=== PATIENT | female | born 2000 | race Caucasian/White ===

== ENCOUNTER 2022-04-01 09:04 | Outpatient (REF) | payer OTHER, SELFPAY ==
[2022-04-01 11:23] LABS: MANUAL DIFF FLAG NO
[2022-04-01 11:44] LABS: Basophils Percent Auto 0.6 % (0-2); Eosinophils Absolute Auto 0.1 X10*3/uL (0.0-0.4); Eosinophils Percent Auto 2.4 % (0-4); Hematocrit 37.1 % (37.0-47.0); Imm Gran Abs Auto 0.02 X10*3/uL (0.00-0.03); Imm Gran Pct Auto 0.4 % (0.0-0.4); Lymphocytes Absolute Auto 1.5 X10*3/uL (1.2-4.9); Lymphocytes Percent Auto 30.4 % (20-40); Mean Corpuscular HGB Conc 32.3 g/dl (31.0-35.0); Mean Corpuscular Hemoglobin 26.8 pg (27.0-33.0); Mean Corpuscular Volume 82.8 fL (80.0-98.0); Mean Platelet Volume 10.2 fL (9.4-12.3); Monocytes Absolute Auto 0.5 X10*3/uL (0.1-1.2); Monocytes Percent Auto 10.3 % (2-11); Neutrophils Absolute Auto 2.8 x10*3/uL (2.0-8.3); Neutrophils Percent Auto 55.9 % (45-73); Platelet Count 337 X10*3/uL (160-400); Red Blood Count 4.48 X10*6/uL (4.20-5.50); Red Cell Distribution Width 12.9 % (11.0-16.0)
[2022-04-01 11:58] LABS: Alanine Aminotransferase 17 U/L (0-31); Albumin Level 4.4 g/dL (3.5-5.0); Alkaline Phosphatase 50 U/L (39-117); Anion Gap 15 (12-20); Aspartate Amino Transferase 10 U/L (5-31); Bilirubin Total 0.6 mg/dL (0.0-1.0); Blood Urea Nitrogen 10 mg/dL (9-16); Calcium 9.3 mg/dL (8.4-10.2); Carbon Dioxide 23 mmol/L (22-29); Chloride 105 mmol/L (96-108); Cholesterol 237 mg/dL; Estimated Glomerular Filt Rate > 60; Glucose Fasting 89 mg/dL (60-99); HDL Cholesterol 48 mg/dL; LDL Cholesterol Calculated 149 mg/dl; Potassium 4.2 mmol/L (3.3-5.1); Sodium 139 mmol/L (135-145); Total Protein 7.5 g/dL (6.5-8.0); Triglycerides 201 mg/dL
[2022-04-01 17:24] LABS: CT PCR NOT DETECTED (Not Detect.); NG PCR NOT DETECTED (Not Detect.)
== END 2022-04-01 09:05 | disposition home or self-care (01) ==
LOC: HO.HMGCLDS 09:04
PROVIDERS: PCP Internal Medicine; Visit Provider Internal Medicine
DX: Z00.00 Encounter for general adult medical examination without abnormal findings (principal); Z11.3 Encounter for screening for infections with a predominantly sexual mode of transmission
CPT/HCPCS: 80053; 80061; 84443; 85025; 87491; 87591

== ENCOUNTER 2022-05-09 11:06 | Outpatient (REF) | payer OTHER, SELFPAY ==
[2022-05-09 14:48] LABS: CT PCR NOT DETECTED (Not Detect.); NG PCR NOT DETECTED (Not Detect.)
[2022-05-10 12:16] LABS: BV Int Neg Control Negative (Negative); BV Int Pos Control Positive (Positive)
== END 2022-05-09 11:07 | disposition home or self-care (01) ==
LOC: HO.LNP 11:06
PROVIDERS: Visit Provider Advanced Practice Midwife
DX: Z01.419 Encounter for gynecological examination (general) (routine) without abnormal findings (principal); Z20.2 Contact with and (suspected) exposure to infections with a predominantly sexual mode of transmission; N92.6 Irregular menstruation, unspecified
CPT/HCPCS: 87480; 87491; 87510; 87591; 87660; 88142

== ENCOUNTER 2022-09-29 11:09 | Outpatient (REF) | payer OTHER, SELFPAY ==
--- NOTE | ~2022-09-29 | US_ITS ---
EXAM: Pelvic Ultrasound CLINICAL INDICATION: Irregular menstruation COMPARISON: None TECHNIQUE: The pelvis was evaluated using transabdominal and transvaginal imaging. FINDINGS: The uterus measures 7.1 x 3.6 x 3.9 cm in longitudinal by AP by transverse dimension. The endometrial stripe is not thickened and measures 0.7 cm. The cervix measures approximately 2.6 cm in length. Small nabothian cyst is noted. The left ovary measures approximately 3.0 x 2.4 x 1.7 cm and is normal. The right ovary measures approximately 4.6 x 3.0 x 2.8 cm and contains a simple appearing 2 cm simple cyst versus dominant follicle. There is a small amount of free fluid in the pelvis. US/US pelvic and transvaginal IMPRESSION: 1. Normal thickness endometrial stripe. 2. 2 cm simple appearing right ovarian cyst versus dominant follicle. 3. Small amount of free pelvic fluid, nonspecific but possibly physiologic.
== END 2022-09-29 11:10 | disposition home or self-care (01) ==
LOC: HO.US 11:09
PROVIDERS: Visit Provider Advanced Practice Midwife
DX: N92.6 Irregular menstruation, unspecified (principal)
CPT/HCPCS: 76830; 76856

== ENCOUNTER 2022-10-21 11:51 | Outpatient (REF) | payer OTHER, SELFPAY ==
[2022-10-21 14:31] LABS: Cholesterol 246 mg/dL; HDL Cholesterol 64 mg/dL; LDL Cholesterol Calculated 154 mg/dl; Triglycerides 144 mg/dL
[2022-10-21 14:42] LABS: Syphilis Screen Nonreactive (Nonreactive)
[2022-10-21 14:49] LABS: Thyroid Stimulating Hormone 2.69 uIU/mL (0.32-4.0)
[2022-10-22 22:55] LABS: DHEA Sulfate 418 mcg/dL (44-286)
[2022-10-24 08:42] LABS: HBc Num1 0.11 S/CO (0.00-0.79); HIV AB/AG Nonreactive (Nonreactive); HIV Num 1 0.06 S/CO (0.00-0.99); Hepatitis B Core Antibody Nonreactive (Nonreactive); ~Hepatitis C Antibody Nonreactive (Nonreactive)
[2022-10-27 14:33] LABS: Testosterone, Total 21 ng/dL (2-45)
== END 2022-10-21 11:52 | disposition home or self-care (01) ==
LOC: HO.LAB 11:51
PROVIDERS: PCP Internal Medicine; Visit Provider Advanced Practice Midwife
DX: N92.6 Irregular menstruation, unspecified (principal); N83.201 Unspecified ovarian cyst, right side; Z20.2 Contact with and (suspected) exposure to infections with a predominantly sexual mode of transmission; E78.5 Hyperlipidemia, unspecified
CPT/HCPCS: 36415; 80061; 82627; 83498; 84146; 84402; 84403; 84443; 86704; 86780; 86803; 87389

== ENCOUNTER → 2022-11-11 07:50 | Outpatient (BNVA) | payer OTHER, SELFPAY | PROVIDERS: PCP Internal Medicine; Visit Provider Advanced Practice Midwife | DX: Z13.89 Encounter for screening for other disorder (principal) ==

== ENCOUNTER 2023-03-28 09:42 | Outpatient (AMB) | payer OTHER, SELFPAY ==
--- NOTE | 2023-03-28 09:42 | MHC.OFFVIS ---
Intake Vital Signs 03/28/23 09:43 Height 5 ft 8 in Weight 218 lb 14.704 oz BMI 33.3 BP 118/64 Blood Pressure Location Lt brachial Position Sitting Pulse 84 Pulse Source Pulse Oximeter Intake Visit Reasons: PCOS/LVM Intake Note: New patient present today for PCOS. Medical Billing Coordinator Required: No Accompanied by: Self / Same As Patient Allergies amoxicillin Allergy (Verified 03/28/23 09:48) vomiting upset stomach Medication List - Last Reconciled 03/28/23 by Marty Hawkins MD fluoxetine (Prozac) 10 mg PO DAILY norethindrone ac-eth estradiol 1-20 mg-mcg (Loestrin) 1 tab PO DAILY HPI HPI Comments History of Present Illness Details 22 YO Female with who is seen in consultation at the request of her PCP for PCOS Menarche was age 12 . Menses have been irregular. nl on BCP OCP use: On Loestrin Metformin use: No Weight gain: No Hirsutism/hyperandrogenism: No Trying to conceive/clomiphene: No Ovarian U/S: US/ pelvic and transvaginal IMPRESSION: 1.? Normal thickness endometrial stripe. 2.? 2 cm simple appearing right ovarian cyst versus dominant follicle. 3.? Small amount of free pelvic fluid, nonspecific but possibly physiologic. 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 Thyroid gland is normal size weighs about 15 g. Lungs are clear to auscultation. Heart is S1-S2. Abdominal exam is benign. There is presence of hair growth present Assessment & Plan Assessment & Plan (1) Elevated dehydroepiandrosterone sulfate level: Code(s): R79.89 - Other specified abnormal findings of blood chemistry Plan: This is a 22-year-old female with a history of PCOS. An ovarian tumor an adrenal tumor have been ruled out biochemically. Mild elevation DHEA-S is consistent with polycystic ovarian syndrome. Plan is to continue with the control pill. Patient does not seek any treatment for the hirsutism and is not looking to become . At this point, she can follow up with primary care provider an OBGYN and returned back to endocrinology as needed Coding Level of Care Code New Pt Level 4 (60821) Diagnoses Elevated dehydroepiandrosterone sulfate level R79.89
[2023-03-28 09:43] VITALS: BP 118/64; PULSE 84; BMI 33.3
== END 2023-03-28 10:12 | disposition home or self-care (01) ==
PROVIDERS: PCP Internal Medicine; Visit Provider Internal Medicine Endocrinology, Diabetes & Metabolism
DX: R79.89 Other specified abnormal findings of blood chemistry (principal)
CPT/HCPCS: 99204

== ENCOUNTER → 2023-03-28 09:42 | Outpatient (BNVA) | payer OTHER, SELFPAY | PROVIDERS: PCP Internal Medicine; Visit Provider Internal Medicine Endocrinology, Diabetes & Metabolism ==

== ENCOUNTER 2023-07-19 10:12 | Outpatient (AMB) | payer OTHER, SELFPAY ==
--- NOTE | 2023-07-19 10:22 | A.OFFVIS_ITS ---
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 Doing well with no concerns. She tries to eat healthy and stays active with exercise. Regular monthly menses. Currently is sexually active. She denies vaginal itching and irritation. She denies any contraindications to control such as: migraines with aura, history of DVT or pulmonary emboli, high blood pressure, liver disease, thrombolic disorders, Lupus, +CARLEY, breast cancer, or smoking. STI screening offered; she accepts. Denies family history of breast, ovarian or colon cancer. Last pap smear 04/2022, negative. 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, works at [employer] Housing: House Alcohol intake: never Patient Tobacco Use Status: Never used Tobacco e-Cigarette/Vaping Use: Never Used Current occupational status: employed and student Sexual orientation: Straight/Heterosexual Gender identity: Female Cognitive needs: No Hearing needs: No Vision needs: Yes Female Reproductive History Menstrual Age of Menarche: 12 Duration of menses: 3-5 days Date of last menstrual period: 06/26/23 control method: pills Total pregnancies: 0 Date of last pap smear: 05/09/22 (neg) Review of Systems Const All systems reviewed & are unremarkable except as noted in HPI and below Reports as per HPI Eyes Reports no additional complaints ENT Reports no additional complaints Card Reports no additional complaints Resp Reports no additional complaints GI Reports as per HPI and Reports no additional complaints Reports as per HPI Musc Reports no additional complaints Skin/Breast Reports as per HPI Neuro Reports no additional complaints Psych Reports no additional complaints Endo Reports no additional complaints [place]/Lymph Reports no additional complaints Aller/Immun Reports no additional complaints Physical Exam Vital Signs: Last Vital Signs BP 120/76 07/19/23 10:24 BMI result Body Mass Index 33.4 Const General: cooperative, healthy appearing, no acute distress, well developed and alert Orientation/consciousness: patient oriented x3 HEENT Head: Yes normal to inspection Eyes General: appearance normal, both eyes and all related structures Neck Neck: Yes normal visual inspection Thyroid: Thyroid normal Chest Chest palpation & inspection: normal inspection of the chest and other (no puckering, dimpling, peau de orange, retraction, discharge, masses) Breast/axilla inspection: normal inspection of the breasts Breast/axilla palpation: normal palpation of the breasts Resp Effort & Inspection: normal respiratory effort GI Inspection: Yes normal to inspection Palpation (GI): Soft to palpation Rectal Exam - Female: deferred General: Yes bladder normal to palpation External Female Exam: normal external appearance and normal appearance of the urethra Speculum Exam - Vagina: normal appearance of the vagina, normal palpation and normal vaginal discharge Speculum Exam - Cervix: normal appearance of the cervix and normal palpation Bimanual exam- vagina & uterus: normal bimanual exam, normal palpation, uterine size normal, bladder normal to palpation, normal palpation and non-tender Bimanual Exam- Adnexa, other: no masses Skin General skin exam: no rashes or lesions noted Rashes: no rashes Neuro General: patient oriented x3 Cognition (Neuro): normal cognition Extrem General: Yes normal to inspection Psych Attitude: cooperative Thought process: Normal thought process present Assessment & Plan Assessment & Plan (1) Encounter for well woman exam with routine gynecological exam: Code(s): Z01.419 - Encounter for gynecological examination (general) (routine) without abnormal findings Plan Discussed: Current recommendations for pap smears per ASCCP guidelines. Breast awareness and periodic breast exams. Maintain a healthy lifestyle including a well balanced diet and routine exercise. Use condoms for STI and prevention. control hormone use warnings: go to ER if and loss of vision, blindness, severe headache, chest pain or difficulty breathing, severe abdominal pain, or any pain or swelling in an extremity. All of her questions and concerns were addressed to the best of my ability. RTO in one year for annual computer technician examination. This note is constructed using voice recognition software. While every effort has been made to ensure accuracy, transit planning manager errors may have been included. Orders: Orders CT NG by PCR Today Z20.2 - Contact with and (suspected) exposure to infections with a predominantly sexual mode of transmission Medications: Refilled norethindrone ac-eth estradiol 1-20 mg-mcg (Loestrin) 1 tab PO DAILY 63 tabs 4RF Coding Level of Care Code Est Pt Prev Care 18-39y(71418) Diagnoses Encounter for well woman exam with routine gynecological exam Z01.419
[2023-07-19 10:24] VITALS: BP 120/76; BMI 33.4
== END 2023-07-19 11:02 | disposition home or self-care (01) ==
LOC: HO.HWS 10:12
PROVIDERS: PCP Internal Medicine; Visit Provider Advanced Practice Midwife
DX: Z01.419 Encounter for gynecological examination (general) (routine) without abnormal findings (principal)
CPT/HCPCS: 99395

== ENCOUNTER 2023-07-19 10:12 | Outpatient (REF) | payer OTHER, SELFPAY ==
[2023-07-19 17:24] LABS: CT PCR NOT DETECTED (Not Detect.); NG PCR NOT DETECTED (Not Detect.)
== END 2023-07-19 10:13 | disposition home or self-care (01) ==
LOC: HO.LNP 10:12
PROVIDERS: PCP Internal Medicine; Visit Provider Advanced Practice Midwife
DX: Z01.419 Encounter for gynecological examination (general) (routine) without abnormal findings (principal); Z20.2 Contact with and (suspected) exposure to infections with a predominantly sexual mode of transmission
CPT/HCPCS: 0353U

== ENCOUNTER 2023-12-06 11:35 | Outpatient (REF) | payer OTHER, SELFPAY ==
[2023-12-06 13:24] LABS: MANUAL DIFF FLAG NO
[2023-12-06 13:27] LABS: Basophils Percent Auto 0.6 % (0-2); Eosinophils Absolute Auto 0.1 X10*3/uL (0.0-0.4); Hematocrit 36.8 % (37.0-47.0); Hemoglobin 11.8 g/dl (12.0-16.0); Imm Gran Abs Auto 0.03 X10*3/uL (0.00-0.03); Imm Gran Pct Auto 0.4 % (0.0-0.4); Lymphocytes Absolute Auto 1.7 X10*3/uL (1.2-4.9); Lymphocytes Percent Auto 24.4 % (20-40); Mean Corpuscular HGB Conc 32.1 g/dl (31.0-35.0); Mean Corpuscular Volume 81.2 fL (80.0-98.0); Mean Platelet Volume 9.5 fL (9.4-12.3); Monocytes Absolute Auto 0.6 X10*3/uL (0.1-1.2); Monocytes Percent Auto 8.2 % (2-11); Neutrophils Absolute Auto 4.5 x10*3/uL (2.0-8.3); Neutrophils Percent Auto 64.4 % (45-73); Platelet Count 377 X10*3/uL (160-400); Red Blood Count 4.53 X10*6/uL (4.20-5.50); Red Cell Distribution Width 13.1 % (11.0-16.0)
[2023-12-06 13:44] LABS: Alanine Aminotransferase 8 U/L (0-31); Albumin Level 4.2 g/dL (3.5-5.0); Alkaline Phosphatase 65 U/L (39-117); Anion Gap 14 (12-20); Aspartate Amino Transferase 11 U/L (5-31); Bilirubin Total 0.4 mg/dL (0.0-1.0); Blood Urea Nitrogen 11 mg/dL (9-16); Calcium 9.4 mg/dL (8.4-10.2); Carbon Dioxide 25 mmol/L (22-29); Chloride 104 mmol/L (96-108); Cholesterol 264 mg/dL (<200); Estimated Glomerular Filt Rate > 60; Glucose Fasting 85 mg/dL (60-99); HDL Cholesterol 66 mg/dL (>40); LDL Cholesterol Calculated 167 mg/dL (<100); Potassium 4.3 mmol/L (3.3-5.1); Sodium 139 mmol/L (135-145); Total Protein 7.5 g/dL (6.5-8.0); Triglycerides 156 mg/dL (<150)
== END 2023-12-06 11:36 | disposition home or self-care (01) ==
LOC: HO.HMGCLDS 11:35
PROVIDERS: PCP Internal Medicine; Visit Provider Internal Medicine
DX: Z00.00 Encounter for general adult medical examination without abnormal findings (principal); E78.5 Hyperlipidemia, unspecified
CPT/HCPCS: 36415; 80053; 80061; 84443; 85025

== ENCOUNTER 2023-12-07 08:30 | Outpatient (REF) | payer OTHER, SELFPAY ==
[2023-12-07 13:17] LABS: Appearance Urine Clear; Color Urine Yellow; Glucose Urine UA Negative (Negative); Leukocyte Esterase Urine Trace (Negative); Nitrite Urine Negative (Negative); UMIC TRIGGER UA YES; Urine Blood Negative (Negative); Urine Ketones Negative (Negative); Urine Protein Negative (Neg-Trace)
[2023-12-07 13:21] LABS: Bacteria Urine None Seen (None Seen); Hyaline Casts Urine 0-2 /LPF (0-2); RBC Urine 0-2 /HPF (0-2); Squamous Epithelial Cell Urine 0-2 /HPF (0-2); WBC Urine 0-5 /HPF (0-5)
== END 2023-12-07 08:31 | disposition home or self-care (01) ==
LOC: HO.HMGCLNP 08:30
PROVIDERS: PCP Internal Medicine; Visit Provider Internal Medicine
DX: Z00.00 Encounter for general adult medical examination without abnormal findings (principal); E78.5 Hyperlipidemia, unspecified
CPT/HCPCS: 81001

== ENCOUNTER 2024-01-18 08:27 | Outpatient (AMB) | payer OTHER, SELFPAY ==
[2024-01-18 08:40] VITALS: BP 124/78; PULSE 76; O2SAT 98; BMI 33.9
--- NOTE | 2024-01-18 08:40 | MHC.PC.OV ---
Vital Signs 01/18/24 08:40 Height 5 ft 8 in Weight 223 lb BMI 33.9 BP 124/78 Blood Pressure Location Rt brachial Position Sitting Pulse 76 Pulse Source Pulse Oximeter Pulse Oximetry (%) 98 Oxygen Delivery Method Room Air Intake Visit Reasons: Annual PE Rescheduled from 10/11/23 Intake Note: Pt is here today for a PE. Allergies amoxicillin Allergy (Verified 01/18/24 08:41) vomiting upset stomach Medication List - Last Reconciled 01/18/24 by Thu Stanley MD fluoxetine (Prozac) 10 mg PO DAILY norethindrone ac-eth estradiol 1-20 mg-mcg (Loestrin) 1 tab PO DAILY Tobacco use date assessed: 01/18/24 Dental Screening Dental Screen Date: 01/18/24 Did you have a dental visit in the last 12 months?: Yes Did you have a dental problem in the last 6 months where you did not have access to dental care?: No Was dental information given to patient?: Patient has dentist HPI Annual PE Rescheduled from 10/11/23 HPI Details Patient presents for a physical. 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 1. Little interest or pleasure in doing things: not at all 2. Feeling down, depressed, or hopeless: not at all 3. Trouble falling or staying asleep, or sleeping too much: not at all 4. Feeling tired or having little energy: not at all 5. Poor appetite or overeating: not at all 6. Feeling bad about yourself - or that you are a failure or have let yourself or your family down: not at all 7. Trouble concentrating on things, such as reading the newspaper or watching television: not at all 8. Moving or speaking so slowly that other people could have noticed. Or the opposite - being so fidgety or restless that you have been moving around a lot more than usual: not at all 9. Thoughts that you would be better off or of hurting yourself in some way: not at all Total score: 0 Depression Screening Interpretation: Negative Depression Screening Done: Yes Source: Developed by Drs. Marty Domingo, Tia Alatorre, Jorge Farrell and colleagues, with an educational shay from [employer]. Thrive Questionnaire Date Thrive assessed: 01/18/24 I am a: Patient What is your living situation today?: I have a steady place to live Within the past 12 months, did the food you bought not last and you didn't have the money to get more?: Never true Within the past 12 months, did you worry whether your food would run out before you got money to buy more?: Never true Do you have trouble paying for medicines?: No Do you have trouble getting transportation to medical appointments?: No Do you have trouble paying your heating and electricity bill?: No Do you have trouble taking care of your child, family member or friend?: No Do you have trouble with day-to-day activities such as bathing, preparing meals, shopping, managing finances, etc.?: No Are you currently unemployed and looking for a job?: No Are you interested in more education?: No Please select the resources that you would like help with: None THRIVE Score: 0 AUDIT C Alcohol Use Questionnaire (AUDIT-C) 1. How often do you have a drink containing alcohol?: Monthly or less 2. How many drinks containing alcohol do you have on a typical day when you are drinking?: 1 or 2 3. How often do you have six or more drinks on one occasion?: Never Total Score: 1 PAT-7 AMB Questionnaire PAT-7 Date PAT - 7 assessed: 01/18/24 Feeling nervous, anxious, or on edge: 0 = Not at all Not being able to stop or control worryin = Not at all Worrying too much about different things: 0 = Not at all Trouble relaxin = Not at all Being so restless that it is hard to sit still: 0 = Not at all Becoming easily annoyed or irritable: 0 = Not at all Feeling afraid as if something awful might happen: 0 = Not at all Total PAT-7 score (0-4 normal; 5-9 mild; 10-14 moderate; 15-21 severe): 0 Source: Developed by Drs. Marty Domingo, Tia Alatorre, Jorge Farrell and colleagues, with an educational shay from [employer]. Review of Systems Const All systems reviewed & are unremarkable except as noted in HPI and below Eyes Reports no additional complaints ENT Reports no additional complaints Card Reports no additional complaints Resp Reports no additional complaints GI Reports no additional complaints Reports no additional complaints Physical exam (Primary Care) Vital Signs: Last Vital Signs Pulse 76 01/18/24 08:40 BP 124/78 01/18/24 08:40 Pulse Ox 98 01/18/24 08:40 Oxygen Delivery Method Room Air 01/18/24 08:40 BMI result Body Mass Index 33.9 Tobacco/Smoking Status: Tobacco use Status Tobacco use date assessed 01/18/24 01/18/24 08:42 Patient Tobacco Use Status Never used Tobacco 01/18/24 08:42 e-Cigarette/Vaping Use Never Used 01/18/24 08:42 PHQ-9: PHQ-9 Score PHQ-9: Total score 0 01/18/24 08:47 Depression Screening Interpretation: Negative Thrive Assessment: Date of Thrive Assessment Date Thrive assessed 01/18/24 01/18/24 08:42 Const General: no acute distress HENMT Ears: hearing grossly normal bilaterally Face and sinus: Yes normal facial exam Throat: Yes posterior oropharynx normal Eyes General: appearance normal, both eyes and all related structures Neck Neck: Yes no lymphadenopathy and Yes supple Resp Effort & Inspection: normal respiratory effort Auscultation: clear to auscultation bilaterally Cardio Rhythm: regular rhythm Heart sounds: S1 normal heart sound present and S2 normal heart sound present GI Inspection: Yes normal to inspection Palpation (GI): Soft to palpation Percussion: Yes normal to percussion Auscultation: normal bowel sounds Assessment and Plan Assessment & Plan (1) Hyperlipidemia: Code(s): E78.5 - Hyperlipidemia, unspecified Plan: Low-cholesterol diet increase physical activity weight loss discussed with the patient. Follow-up in 6 months with a fasting labs before (2) Annual physical exam: Code(s): Z00.00 - Encounter for general adult medical examination without abnormal findings Plan: Well-balanced diet regular exercise weight loss discussed with the patient. She is up-to-date with the Pap smear by hotel or motel manager Orders: Orders Lipid Panel 6 Months E78.5 - Hyperlipidemia, unspecified Coding Level of Care Code Est Pt Prev Care 18-39y(72727) Diagnoses Hyperlipidemia E78.5 Annual physical exam Z00.00
== END 2024-01-18 08:52 | disposition home or self-care (01) ==
LOC: HO.HMGC 08:27
PROVIDERS: PCP Internal Medicine; Visit Provider Internal Medicine
DX: E78.5 Hyperlipidemia, unspecified (principal); Z00.00 Encounter for general adult medical examination without abnormal findings
CPT/HCPCS: 99395

== ENCOUNTER 2024-07-03 10:39 | Outpatient (REF) | payer OTHER, SELFPAY ==
[2024-07-03 13:49] LABS: Cholesterol 237 mg/dL (<200); HDL Cholesterol 69 mg/dL (>40); LDL Cholesterol Calculated 133 mg/dL (<100); Triglycerides 178 mg/dL (<150)
== END 2024-07-03 10:40 | disposition home or self-care (01) ==
LOC: HO.HMGCLDS 10:39
PROVIDERS: PCP Internal Medicine; Visit Provider Internal Medicine
DX: E78.5 Hyperlipidemia, unspecified (principal)
CPT/HCPCS: 36415; 80061

== ENCOUNTER 2024-07-11 12:51 | Outpatient (AMB) | payer OTHER, SELFPAY ==
[2024-07-11 12:54] VITALS: BP 118/66; PULSE 90; O2SAT 97; BMI 32.8
--- NOTE | 2024-07-11 12:54 | A.OFFPC_ITS ---
Vital Signs 07/11/24 12:54 Height 5 ft 8 in Weight 216 lb BMI 32.8 BP 118/66 Blood Pressure Location Rt brachial Position Sitting Pulse 90 Pulse Source Pulse Oximeter Pulse Oximetry (%) 97 Oxygen Delivery Method Room Air Intake Visit Reasons: 6 months follow up Intake Note: Pt is here today for 6 months follow up visit. Allergies amoxicillin Allergy (Verified 07/11/24 13:18) vomiting upset stomach Medication List - Last Reconciled 07/11/24 by Thu Stanley MD dextroamphetamine-amphetamine 10 mg (Adderall) 10 mg PO DAILY PRN fluoxetine 40 mg PO DAILY norethindrone ac-eth estradiol 1-20 mg-mcg (Loestrin) 1 tab PO DAILY Tobacco use date assessed: 07/11/24 Dental Screening Dental Screen Date: 01/18/24 HPI 6 months follow up HPI Details Pt presents for f/u diet controlled hyperlipid. 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 1. Little interest or pleasure in doing things: not at all 2. Feeling down, depressed, or hopeless: not at all 3. Trouble falling or staying asleep, or sleeping too much: not at all 4. Feeling tired or having little energy: not at all 5. Poor appetite or overeating: not at all 6. Feeling bad about yourself - or that you are a failure or have let yourself or your family down: not at all 7. Trouble concentrating on things, such as reading the newspaper or watching television: not at all 8. Moving or speaking so slowly that other people could have noticed. Or the opposite - being so fidgety or restless that you have been moving around a lot more than usual: not at all 9. Thoughts that you would be better off or of hurting yourself in some way: not at all Total score: 0 Depression Screening Interpretation: Negative Depression Screening Done: Yes 13406 - PHQ-9 Billing: Yes Source: Developed by Drs. Marty Domingo, Tia Alatorre, Jorge Farrell and colleagues, with an educational shay from [employer]. Thrive Questionnaire Date Thrive assessed: 07/11/24 I am a: Patient What is your living situation today?: I have a steady place to live Within the past 12 months, did the food you bought not last and you didn't have the money to get more?: Never true Within the past 12 months, did you worry whether your food would run out before you got money to buy more?: Never true Do you have trouble paying for medicines?: No Do you have trouble getting transportation to medical appointments?: No Do you have trouble paying your heating and electricity bill?: No Do you have trouble taking care of your child, family member or friend?: No Do you have trouble with day-to-day activities such as bathing, preparing meals, shopping, managing finances, etc.?: No Are you currently unemployed and looking for a job?: No Are you interested in more education?: Yes Please select the resources that you would like help with: None Currently or been in a relationship where the following occur: I choose not to answer THRIVE Score: 0 AUDIT C Alcohol Use Questionnaire (AUDIT-C) 1. How often do you have a drink containing alcohol?: Never 3. How often do you have six or more drinks on one occasion?: Never Total Score: 0 PAT-7 AMB Questionnaire PAT-7 Date PAT - 7 assessed: 07/11/24 Feeling nervous, anxious, or on edge: 1 = Several days Not being able to stop or control worryin = Several days Worrying too much about different things: 1 = Several days Trouble relaxin = Several days Being so restless that it is hard to sit still: 1 = Several days Becoming easily annoyed or irritable: 1 = Several days Feeling afraid as if something awful might happen: 1 = Several days Total PAT-7 score (0-4 normal; 5-9 mild; 10-14 moderate; 15-21 severe): 7 Source: Developed by Drs. Marty Domingo, Tia Alatorre, Jorge Farrell and colleagues, with an educational shay from [employer]. PAT-7 Assessment Billing PAT-7 Assessment Tool: PAT-7 Assessment 71019 Review of Systems Const All systems reviewed & are unremarkable except as noted in HPI and below Eyes Reports no additional complaints ENT Reports no additional complaints Card Reports no additional complaints Resp Reports no additional complaints GI Reports no additional complaints Reports no additional complaints Physical exam (Primary Care) Vital Signs: Last Vital Signs Pulse 90 07/11/24 12:54 BP 118/66 07/11/24 12:54 Pulse Ox 97 07/11/24 12:54 Oxygen Delivery Method Room Air 07/11/24 12:54 BMI result Body Mass Index 32.8 Tobacco/Smoking Status: Tobacco use Status Tobacco use date assessed 07/11/24 07/11/24 13:22 Patient Tobacco Use Status Never used Tobacco 07/11/24 12:54 e-Cigarette/Vaping Use Never Used 07/11/24 12:54 PHQ-9: PHQ-9 Score PHQ-9: Total score 0 07/11/24 13:22 Depression Screening Interpretation: Negative Thrive Assessment: Date of Thrive Assessment Date Thrive assessed 07/11/24 07/11/24 13:22 Currently or been in a relationship where the following occur: I choose not to answer Const General: no acute distress HENMT Head: Yes normal to inspection Neck Neck: Yes supple Resp Effort & Inspection: normal respiratory effort Auscultation: clear to auscultation bilaterally Cardio Rhythm: regular rhythm Heart sounds: S1 normal heart sound present and S2 normal heart sound present Coding Level of Care Code Est Pt Level 3 (09142) Diagnoses Hyperlipidemia E78.5 Additional Codes PAT-7 Assessment Billing - PAT-7 Assessment Tool: PAT-7 Assessment 29719 ([id number]) PHQ-9 - 81015 - PHQ-9 Billing: Yes ([id number]) Assessment & Plan Assessment & Plan (1) Hyperlipidemia: Code(s): E78.5 - Hyperlipidemia, unspecified Category: Medical Plan: Continue low-cholesterol diet regular exercise weight loss follow-up in 6 months for physical with a fasting labs before Orders: Orders Comprehensive [place]. Panel Fast 6 Months E78.5 - Hyperlipidemia, unspecified, Z00.00 - Encounter for general adult medical examination without abnormal findings Complete Blood Count Auto Diff 6 Months E78.5 - Hyperlipidemia, unspecified, Z00.00 - Encounter for general adult medical examination without abnormal findings Lipid Panel 6 Months E78.5 - Hyperlipidemia, unspecified, Z00.00 - Encounter for general adult medical examination without abnormal findings TSH reflex Free T4 6 Months E78.5 - Hyperlipidemia, unspecified, Z00.00 - Encounter for general adult medical examination without abnormal findings Medications: Refilled norethindrone ac-eth estradiol 1-20 mg-mcg (Loestrin) 1 tab PO DAILY 63 tabs 4RF
== END 2024-07-11 13:44 | disposition home or self-care (01) ==
PROVIDERS: PCP Internal Medicine; Visit Provider Internal Medicine
DX: E78.5 Hyperlipidemia, unspecified (principal)

== ENCOUNTER → 2024-07-11 12:51 | Outpatient (BNVA) | payer OTHER, SELFPAY | PROVIDERS: PCP Internal Medicine; Visit Provider Internal Medicine | DX: E78.5 Hyperlipidemia, unspecified (principal) | CPT/HCPCS: 96127 ==

== ENCOUNTER 2024-07-31 09:08 | Outpatient (REF) | payer OTHER, SELFPAY ==
[2024-08-01 03:24] LABS: CT PCR NOT DETECTED (Not Detect.); NG PCR NOT DETECTED (Not Detect.)
[2024-08-01 11:55] LABS: Bacterial Vaginosis PCR NEGATIVE (Negative); Candida Group PCR DETECTED (Not Detect); Candida glab krusei PCR NOT DETECTED (Not Detect); Trichomonas vaginalis PCR NOT DETECTED (Not Detect)
== END 2024-07-31 09:09 | disposition home or self-care (01) ==
LOC: HO.LAB 09:08
PROVIDERS: PCP Internal Medicine; Visit Provider Advanced Practice Midwife
DX: Z01.419 Encounter for gynecological examination (general) (routine) without abnormal findings (principal); N89.8 Other specified noninflammatory disorders of vagina
CPT/HCPCS: 81515; 87491; 87591

== ENCOUNTER 2024-07-31 09:08 | Outpatient (AMB) | payer OTHER, SELFPAY ==
--- NOTE | 2024-07-31 09:09 | A.OFFVIS_ITS ---
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 Doing well with manager requirements concerns: Bled after rough intimacy x1 episode several weeks ago no other occurrences or symptoms, she feels it is due to his size. Doing well on the OCP's. Currently is sexually active same long-term partner. She denies vaginal itching and irritation. STI screening offered; she accepts. She denies any contraindications to control such as: migraines with aura, history of DVT or pulmonary emboli, high blood pressure, liver disease, thrombolic disorders, Lupus, +CARLEY, breast cancer, or smoking. She tries to eat healthy and stays active with exercise. Denies family history of breast, ovarian or colon cancer. Last pap smear 2021, negative. [facility] Medical History History of irregular menstrual cycles Elevated dehydroepiandrosterone sulfate level Sinusitis Annual physical exam ADD (attention deficit disorder) Depression Surgical History History of surgery of uterus Social History Household Members Other:: lives with parents Housing: House Alcohol intake: never Patient Tobacco Use Status: Never used Tobacco e-Cigarette/Vaping Use: Never Used service: No Current occupational status: employed and student Current occupation: [employer] major, work-[employer], [email or web address] Sexual orientation: Straight/Heterosexual Gender identity: Female Cognitive needs: No Hearing needs: No Vision needs: Yes Female Reproductive History Menstrual Age of Menarche: 12 Date of last menstrual period: 07/27/24 control method: pills Total pregnancies: 0 Date of last pap smear: 05/09/22 (neg) Review of Systems Const All systems reviewed & are unremarkable except as noted in HPI and below Reports as per HPI Eyes Reports no additional complaints ENT Reports no additional complaints Card Reports no additional complaints Resp Reports no additional complaints GI Reports as per HPI and Reports no additional complaints Reports as per HPI Musc Reports no additional complaints Skin/Breast Reports as per HPI Neuro Reports no additional complaints Psych Reports no additional complaints Endo Reports no additional complaints [place]/Lymph Reports no additional complaints Aller/Immun Reports no additional complaints Physical Exam Vital Signs: Last Vital Signs BP 122/82 07/31/24 09:10 BMI result Body Mass Index 32.8 Const General: cooperative, healthy appearing, no acute distress, well developed and alert Orientation/consciousness: patient oriented x3 HEENT Head: Yes normal to inspection Eyes General: appearance normal, both eyes and all related structures Neck Neck: Yes normal visual inspection Thyroid: Thyroid normal Chest Chest palpation & inspection: normal inspection of the chest and other (no puckering, dimpling, peau de orange, retraction, discharge, masses) Breast/axilla inspection: normal inspection of the breasts Breast/axilla palpation: normal palpation of the breasts Resp Effort & Inspection: normal respiratory effort GI Inspection: Yes normal to inspection Palpation (GI): Soft to palpation Rectal Exam - Female: deferred General: Yes bladder normal to palpation External Female Exam: normal external appearance and normal appearance of the urethra Speculum Exam - Vagina: normal appearance of the vagina, normal palpation and normal vaginal discharge Speculum Exam - Cervix: normal appearance of the cervix and normal palpation Bimanual exam- vagina & uterus: normal bimanual exam, normal palpation, uterine size normal, bladder normal to palpation, normal palpation and non-tender Bimanual Exam- Adnexa, other: no masses Skin General skin exam: no rashes or lesions noted Rashes: no rashes Neuro General: patient oriented x3 Cognition (Neuro): normal cognition Extrem General: Yes normal to inspection Psych Attitude: cooperative Thought process: Normal thought process present Assessment & Plan Assessment & Plan (1) Encounter for well woman exam with routine gynecological exam: Code(s): Z01.419 - Encounter for gynecological examination (general) (routine) without abnormal findings Category: Medical Plan Discussed: Current recommendations for pap smears per ASCCP guidelines. Breast awareness and periodic breast exams. Maintain a healthy lifestyle including a well balanced diet and routine exercise. control hormone use warnings: go to ER if and loss of vision, blindness, severe headache, chest pain or difficulty breathing, severe abdominal pain, or any pain or swelling in an extremity. [employer] rings-[place] website to consider purchasing if needing a barrier with intimacy, or use of hand barrier to protect against deep thrusting. Patient verbalizes understanding and agrees to the plan of care. She was given opportunity to ask questions and all questions were answered to the best of my ability. RTO in one year for annual manager requirements examination. This note is constructed using voice recognition software. While every effort has been made to ensure accuracy, lip cutter errors may have been included. Orders: Orders Bacterial Vaginosis Panel Today N89.8 - Other specified noninflammatory disorders of vagina Pap Smear Today Z01.419 - Encounter for gynecological examination (general) (routine) without abnormal findings CT NG by PCR Today N89.8 - Other specified noninflammatory disorders of vagina Medications: Refilled norethindrone ac-eth estradiol 1-20 mg-mcg (Loestrin) 1 tab PO DAILY 63 tabs 4RF Coding Level of Care Code Est Pt Prev Care 18-39y(70598) Diagnoses Encounter for well woman exam with routine gynecological exam Z01.419
[2024-07-31 09:10] VITALS: BP 122/82; BMI 32.8
== END 2024-07-31 10:08 | disposition home or self-care (01) ==
LOC: HO.HWS 09:08
PROVIDERS: PCP Internal Medicine; Visit Provider Advanced Practice Midwife
DX: Z01.419 Encounter for gynecological examination (general) (routine) without abnormal findings (principal)
CPT/HCPCS: 99395; 99459

== ENCOUNTER 2024-07-31 09:39 | Outpatient (REF) | payer OTHER, SELFPAY | END 2024-07-31 09:40 | disposition home or self-care (01) | LOC: HO.LNP 09:39 | PROVIDERS: Visit Provider Advanced Practice Midwife | DX: Z01.419 Encounter for gynecological examination (general) (routine) without abnormal findings (principal) | CPT/HCPCS: 88175 ==

== ENCOUNTER 2025-04-25 10:54 | Outpatient (AMB) | payer OTHER, SELFPAY ==
[2025-04-25 11:18] VITALS: BP 118/78; PULSE 85; RESP 17; TEMP 36.8; O2SAT 97
--- NOTE | 2025-04-25 11:18 | A.OFFPC_ITS ---
Vital Signs 04/25/25 11:18 Height 5 ft 8 in Weight 197 lb BMI 30.0 BP 118/78 Blood Pressure Location Lt brachial Position Sitting Respiration 17 Pulse 85 Pulse Source Pulse Oximeter Temp 98.2 F Temp Source Oral Pulse Oximetry (%) 97 Oxygen Delivery Method Room Air Intake Visit Reasons: general health, control Intake Note: Pt is here today for a follow up visit. Allergies amoxicillin Allergy (Verified 04/25/25 11:20) vomiting upset stomach Medication List - Last Reconciled 04/25/25 by Thu Stanley MD dextroamphetamine-amphetamine 10 mg (Adderall) 10 mg PO DAILY PRN fluoxetine 40 mg PO DAILY miconazole nitrate 2% (Monistat 7) 1 appful vaginal BEDTIME 7 days norethindrone ac-eth estradiol 1-20 mg-mcg (Loestrin) 1 tab PO DAILY Tobacco use date assessed: 04/25/25 Dental Screening Dental Screen Date: 04/25/25 Did you have a dental visit in the last 12 months?: Yes Did you have a dental problem in the last 6 months where you did not have access to dental care?: No Was dental information given to patient?: Patient has dentist HPI general health, control HPI Details Pt presents for PE. [facility] Medical History (Updated 04/25/25 @ 12:14 by Thu Stanley MD) History of irregular menstrual cycles Elevated dehydroepiandrosterone sulfate level Sinusitis Annual physical exam ADD (attention deficit disorder) Depression Surgical History History of surgery of uterus Social History (Updated 04/25/25 @ 11:45 by Thu Stanley MD) Household Members Other:: lives with parents, Housing: House Alcohol intake: never Patient Tobacco Use Status: Never used Tobacco e-Cigarette/Vaping Use: Never Used service: No Current occupational status: employed and student Current occupation: [employer] major, work-[employer], [employer] Sexual orientation: Straight/Heterosexual Gender identity: Female Cognitive needs: No Hearing needs: No Vision needs: Yes Female Reproductive History Menstrual Age of Menarche: 12 Questionnaire PHQ-9 Over the last 2 weeks, how often have you been bothered by any of the following problems? 1. Little interest or pleasure in doing things: not at all 2. Feeling down, depressed, or hopeless: not at all 3. Trouble falling or staying asleep, or sleeping too much: not at all 4. Feeling tired or having little energy: not at all 5. Poor appetite or overeating: not at all 6. Feeling bad about yourself - or that you are a failure or have let yourself or your family down: not at all 7. Trouble concentrating on things, such as reading the newspaper or watching television: not at all 8. Moving or speaking so slowly that other people could have noticed. Or the opposite - being so fidgety or restless that you have been moving around a lot more than usual: not at all 9. Thoughts that you would be better off or of hurting yourself in some way: not at all Total score: 0 Depression Screening Interpretation: Negative Depression Screening Done: Yes 75798 - PHQ-9 Billing: Yes Source: Developed by Drs. Marty Domingo, Tia Alatorre, Jorge Farrell and colleagues, with an educational shay from [employer]. Thrive Questionnaire Date Thrive assessed: 04/25/25 I am a: Patient What is your living situation today?: I have a steady place to live Within the past 12 months, did the food you bought not last and you didn't have the money to get more?: Never true Within the past 12 months, did you worry whether your food would run out before you got money to buy more?: Never true Do you have trouble paying for medicines?: No Do you have trouble getting transportation to medical appointments?: No Do you have trouble paying your heating and electricity bill?: No Do you have trouble taking care of your child, family member or friend?: No Do you have trouble with day-to-day activities such as bathing, preparing meals, shopping, managing finances, etc.?: No Are you currently unemployed and looking for a job?: No Are you interested in more education?: Yes Please select the resources that you would like help with: None Currently or been in a relationship where the following occur: No concerns reported THRIVE Score: 0 PAT-7 AMB Questionnaire PAT-7 Date PAT - 7 assessed: 04/25/25 Feeling nervous, anxious, or on edge: 0 = Not at all Not being able to stop or control worryin = Not at all Worrying too much about different things: 0 = Not at all Trouble relaxin = Not at all Being so restless that it is hard to sit still: 0 = Not at all Becoming easily annoyed or irritable: 0 = Not at all Feeling afraid as if something awful might happen: 0 = Not at all Total PAT-7 score (0-4 normal; 5-9 mild; 10-14 moderate; 15-21 severe): 0 Source: Developed by Drs. Marty Domingo, Tia Alatorre, Jorge Farrell and colleagues, with an educational shay from [employer]. PAT-7 Assessment Billing PAT-7 Assessment Tool: PAT-7 Assessment 98372 Review of Systems Const All systems reviewed & are unremarkable except as noted in HPI and below Eyes Reports no additional complaints ENT Reports no additional complaints Card Reports no additional complaints Resp Reports no additional complaints GI Reports no additional complaints Reports no additional complaints Physical exam (Primary Care) Vital Signs: Last Vital Signs Temp 98.2 F 04/25/25 11:18 Pulse 85 04/25/25 11:18 Resp 17 04/25/25 11:18 BP 118/78 04/25/25 11:18 Pulse Ox 97 04/25/25 11:18 Oxygen Delivery Method Room Air 04/25/25 11:18 BMI result Body Mass Index 30.0 Tobacco/Smoking Status: Tobacco use Status Tobacco use date assessed 04/25/25 04/25/25 11:24 Patient Tobacco Use Status Never used Tobacco 04/25/25 11:24 e-Cigarette/Vaping Use Never Used 04/25/25 11:24 PHQ-9: PHQ-9 Score PHQ-9: Total score 0 04/25/25 11:24 Depression Screening Interpretation: Negative Thrive Assessment: Date of Thrive Assessment Date Thrive assessed 04/25/25 04/25/25 11:24 Currently or been in a relationship where the following occur: No concerns reported Const General: no acute distress HENMT Head: Yes normal to inspection General nose exam: Normal external nose present Face and sinus: Yes normal facial exam Eyes General: appearance normal, both eyes and all related structures Neck Neck: Yes no lymphadenopathy and Yes supple Resp Effort & Inspection: normal respiratory effort Auscultation: clear to auscultation bilaterally Cardio Rhythm: regular rhythm Heart sounds: S1 normal heart sound present and S2 normal heart sound present GI Inspection: Yes normal to inspection Palpation (GI): Soft to palpation Percussion: Yes normal to percussion Auscultation: normal bowel sounds Coding Level of Care Code Est Pt Prev Care 18-39y(91893) Diagnoses Annual physical exam Z00.00 Hyperlipidemia E78.5 Additional Codes PAT-7 Assessment Billing - PAT-7 Assessment Tool: PAT-7 Assessment 61884 ([id number]) PHQ-9 - 10512 - PHQ-9 Billing: Yes ([id number]) Assessment & Plan Assessment & Plan (1) Annual physical exam: Code(s): Z00.00 - Encounter for general adult medical examination without abnormal findings Category: Medical Plan: Well-balanced diet regular physical activity discussed with the patient 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 Panel Fast Today E78.5 - Hyperlipidemia, unspecified, Z00.00 - Encounter for general adult medical examination without abnormal findings Complete Blood Count Auto Diff Today E78.5 - Hyperlipidemia, unspecified, Z00.00 - Encounter for general adult medical examination without abnormal findings Lipid Panel Today E78.5 - Hyperlipidemia, unspecified, Z00.00 - Encounter for general adult medical examination without abnormal findings UA w Microscopic Today E78.5 - Hyperlipidemia, unspecified, Z00.00 - Encounter for general adult medical examination without abnormal findings TSH reflex Free T4 Today E78.5 - Hyperlipidemia, unspecified, Z00.00 - Encounter for general adult medical examination without abnormal findings
--- OUTSIDE RECORDS SUMMARY | 2025-04-25 12:13 | XMS_ITS | Encounter Summary ---
Author Organization [facility] Address [address] [place] [phone] Phone Care Team Providers Care Health Program Manager Name Role Phone Dayna Daniels MD Primary Care Prov ider Encounter Details Date Type Department Care Team (Late st Contact Info) Description 09/21/2017 Conversion Encounter [facility] [address] [phone] Dayna Richter MD [address] [id number] Social History Tobacco Use Types Packs/Day Years Used Date Smoking Tobacco: Never Comments:Never Comments Unknown Sex and Gender Information Value Date Recorded Sex Assigned at Female 02/21/2020 10:53 AM EDT Legal Sex Female 12:17 PM EST Gender Identity Female 02/21/2020 10:53 AM EDT Sexual Orientation Bisexual 02/21/2020 10 :53 AM EDT documented as of this encounter Plan of Treatment Not on file documented as of this encounter Visit Diagnoses Not on filedocumented in this encounter Care Teams Health Program Manager Relationship Specialty Start Date End Date Dayna Daniels MD [address] [id number] PCP - General 02/17/17 documented as of this encounter
--- OUTSIDE RECORDS SUMMARY | 2025-04-25 12:13 | XMS_ITS | Clinical Summary ---
Author Organization [facility] Address [address] [place] [address] Phone Care Team Providers Care Certified Professional Midwife Name Role Phone Dayan Daniels MD Primary Care Prov ider Allergies Active Allergy Reactions Criticality Noted Date Comments Amoxicillin Diarrhea Medications albuterol HFA 108 (90 Base) MCG/ACT inhalerIndication s:Mild intermittent asthma with acute exacerbation Inhale 2 puffs every 4 (four) hours as needed for wheezing or shortness of breath (cough, chest tightness). 1 Units 0 Active Active Problems Patient Care Coordination No te Formatting of this note migh t be different from the original. 04/18/18-Scheduled Sports medicine appointment for 04/23/2018 @ 2:[address] Bridger Georges. Problem Noted Date Diagnosed Date Sunburn of first degree 02/22/2020 Assessment & Plan (02/22/2020 10:41 AM EDT): Pt counseled on UV broad spectrum protection prevention and sunburn protection Self-inflicted injury 02/21/2020 Overweight 07/13/2019 Patellofemoral stress syndrome 03/13/2018 Overview (08/04/2018): f/up Dr. More Assessment & Plan (02/21/2020 10:58 AM EDT): 2 hr driving trip R knee in same position driving leg; advise take breaks and stretch prior to driving Assessment & Plan (03/08/2019 3:04 PM EDT): Occasional pain , controlled with OTC anti- inflammatory meds Mild intermittent asthma with acute exacerbation 03/13/2018 Overview (08/04/2018): Exacerbation 07/07 Assessment & Plan (02/21/2020 10:58 AM EDT): Albuterol for sports fall 2018 Assessment & Plan (08/24/2019 1:07 PM EST): Updraft in office and improved aeration; advise EDD sick plan Assessment & Plan (03/08/2019 3:05 PM EDT): Mild intermittent asthma is stable during summer time, occasional exacerbations are happening at winter time and viral illness ALbuetrol is used prior her volleyball practice Assessment & Plan (03/13/2018 11:15 AM EDT): She will use B2 agonist 30 minutes prior physical activity Keratosis pilaris 02/28/2018 Allergic rhinitis 02/28/2018 Overview (02/21/2020): Summer allergies Assessment & Plan (02/21/2020 10:56 AM EDT): Declines mediation Just sneezing Adjustment disorder with mixed anxiety and depre ssed mood 02/28/2018 Overview (02/28/2018): Abnormal PHQ9 & scared; pt w/ hx of suicidal ideation; pt referred to [facility] on 02/28/18 for same day visit Assessment & Plan (02/21/2020 10:59 AM EDT): In w/ Kasha Assessment & Plan (08/24/2019 1:09 PM EST): Pt reports she has counseling Assessment & Plan (03/09/2019 9:15 AM EDT): Starting psychotherapy with Aleksandra Alamo Irregular menstrual cycle 02/28/2018 Overview (02/21/2020): Painful irregular Assessment & Plan (02/22/2020 10:45 AM EDT): Will talk w/ mom consider OCP as painful periods disruptive to ADL's ie needs to call out out work Resolved Problems Problem Noted Date Diagnosed Date Resolved Date Exposure to influenza 08/24/20192019 Overview (08/24/2019): Pt exposed to sib Dominac on 08/06/19 who was + for flu- pt also became sick last week but did not get evaluated until today Assessment & Plan (08/24/2019 1:08 PM EST): Pt likely had influenza as well but due to timeline of fever and clinical course; Tamiflu does not see to be of great benefit; how pt needs antibiotic for now sinusitis Elevated blood-pressure read ing without diagnosis of hypertension 08/04/2018 03/08/2019 Overview (08/04/2018): 08/04/18 Flat foot 03/13/2018 02/21/2020 Assessment & Plan (03/13/2018 11:14 AM EDT): She will use OTC shoe inserts Croup 07/10/2014 03/08/2019 Immunizations Immunization Administration Dates Next Due DTaP 5 05/23/2006, 3,2001, 002,2001 HPV, Quadrivalent 11/19/2014,09/16/2013,07/09/20 13 Hep A, ped/adol 02/17/2017,09/03/2015 Hep B, ped/adol 02/22/2002,2001,2001 HiB 08/07/2002, 2,2001, 001 Influenza, intranasal, quadrivalent 06/09/2015,1 ,05/13/2013 Influenza, intranasal, trivalent 011,05/19/2010,06/05/2009, 008,05/28/2007,05/23/2006 MMR 05/23/2006,08/07/2002 Meningococcal B Trumenba 07/02/2020,03/08/2019 Meningococcal Conj (Menactra) MCV4P 02/28/2018,1 09/09/2012 Polio 05/23/2006, 3,2001, 001 Tdap 07/09/2013 Varicella 05/30/2008 Family History Medical History Relation Name Comments Hyperlipidemia Father Asthma Maternal Grandmother Hypertension Mother Relation Name Status Comments Father Maternal Grandmother Mother Social History Tobacco Use Types Packs/Day Years Used Date Smoking Tobacco: Never Smokeless Tobacco: Never Comments:Never Alcohol Use Standard Drinks/Week Comments No 0 (1 standard drink = 0.6 oz pur e alcohol) Hunger/Food Answer Date Recorded In the last 12 months, did y ou or your family ever eat less than you felt you should because there wasn't enough money for food? No 07/02/2020 Stable Housing Answer Date Recorded Are you worried that in the next 2 months you may not have stable housing? No 07/02/2020 Transportation Concerns Answer Date Rec orded In the last 12 months, have you or your family ever had to go without healthcare because you didn't have a way to get there? No 07/02/2020 Hazards in Home Answer Date Recorded Think about the place you li ve. Do you have problems with any of the following? Pests (mice or roaches), mold, no/not working smoke detectors, water leaks, no window guards. No 2019 Financing Utilities Answer Date Recorde d In the last 12 months, has t he electric, gas, oil, or water company threatened to shut off your services in your home? No 07/02/2020 Safety at Home Answer Date Recorded Are you or your family worried about feeling saf e in your home? No 07/02/2020 Outside Support Answer Date Recorded Do you feel that you need mo re support from other people or programs to help you care for yourself or your family? No 07/02/2020 Understanding Health Concerns Answer Da te Recorded Do you need help understandi ng your or your child's healthcare needs (diagnosis, medications, plan, etc.)? No 07/02/2020 Financing Health Concerns Answer Date R ecorded In the last 12 months, was t here a time when your child needed to see a doctor or get medications or supplies but could not because of cost? No 07/02/2020 Missing School or Work Answer Date Derrick rded Did you or your child miss s chool or work because of a health problem that could have been avoided? No 07/02/2020 Comments No Sex and Gender Information Value Date Recorded Sex Assigned at Female 02/21/2020 10:53 AM EDT Legal Sex Female 12:17 PM EST Gender Identity Female 02/21/2020 10:53 AM EDT Sexual Orientation Bisexual 02/21/2020 10 :53 AM EDT Last Filed Vital Signs Vital Sign Reading Time Taken Comments Blood Pressure 120/76 07/02/2020 11:20 AM EST Pulse 96 07/02/2020 11:20 AM EST Temperature 36.8 C (98.2 F) 07/02/2020 11:20 AM EST Respiratory Rate - - Oxygen Saturation 98% 08/04/2018 10:22 AM EST Inhaled Oxygen Concentration - - Weight 85.9 kg (189 lb 6.4 oz) 07/02/2020 11:20 AM EST Height 174 cm (5' 8.5 ) 07/02/2020 11:20 AM EST Body Mass Index 28.38 07/02/2020 11:20 AM EST Plan of Treatment Health Maintenance Due Date Last Done Comments Varicella Vaccines (1 of 2 - 13+ 2-dose series) 07/07/2015 05/30/2008 DTaP,Tdap,and Td Vaccines (7 - Td or Tdap) 07/09/2023 07/09/2013, 05/23/2006, 11/03/2002, Additional history exists Influenza Vaccines (#1) 2025 06/09/20 15, 04/26/2014, 05/13/2013, Additional history exists COVID-19 Vaccine (3 - season) 2025 09/08/2020, 08/18/2020 Hepatitis B Vaccines Completed 02/22/2002, 2001, 2001 HIB Vaccines Completed 08/07/2002, 10/22, 2001, Additional history exists IPV Vaccines Completed 05/23/2006, 10/22, 2001, Additional history exists MMR Vaccines Completed 05/23/2006, 08/07/2002 HPV Vaccines Completed 11/19/2014, 08/25, 07/09/2013 Hepatitis A Vaccines Completed 02/17/2017, 09/03/19 16 Meningococcal Vaccine Completed 02/28/2018, 013 Men B Vaccine Completed 07/02/2020, 03/08/2019 Pneumococcal Vaccine Aged Out 07/02/2020 No long er eligible based on patient's age to complete this topic Procedures * Due to [facility] law, this organization might not be sharing sensitive test results. Procedure Name Priority Date/Time Associated Diagnosis Comments CHLAMYDIA TRACHOMATIS, AMPLIFIED Routine 02/21/2020 4:08 PM EDT Encounter for screening examination for sexually transmitted disease from Last 3 Months or Most Recently Relevant to Health Maintenance Results * Due to [facility] law, this organization might not be sharing sensitive test results. * Chlamydia trachomatis, Amplified (02/21/2020 4:08 PM EDT) CHLAMYDIA, DNA PROBE NEGATIVE NEGATIVE [facility] Urine (Urine) 02/21/2020 4:0 8 PM EDT 02/21/2020 8:[address] [facility] - 03/02/2020 9:58 AM EDT [employer], a member of [address] [address] Applications Chemist - Brunilda Martin MD An Srinivasan NP LAB MICROBIOLOGY - GENERAL ORDER LIZZETH Final Result [facility] from Last 3 Months or Most Recently Relevant to Health Maintenance Insurance [facility] Address: [address] [place] [phone] Care Teams Certified Professional Midwife Relationship Specialty Start Date End Date Dayna Daniels MD [address] [place] [address] PCP - General 02/17/17
--- OUTSIDE RECORDS SUMMARY | 2025-04-25 12:13 | XMS_ITS | Clinical Summary ---
Author Organization [facility] Address [address] [place] [address] Care Team Providers Care Black Pickler Name Role Phone Thu Stanley MD Primary Care Provider [phone] Surgical History Surgery Date Site/Laterality Comments OTHER SURGICAL HISTORY PROCEDURE: DENIES PREVIOUS SURGERY Medical History Medical History Date Comments Patient denies medical problems DX:Patient denies medical problems Social History Tobacco Use Types Packs/Day Years Used Date Smoking Tobacco: Some Days Smokeless Tobacco: Never Alcohol Use Standard Drinks/Week Comments Not Currently 0 (1 standard drink = 0.6 oz pur e alcohol) Comments Unknown Sex and Gender Information Value Date Recorded Sex Assigned at Not on file Legal Sex Female 4:40 AM EST Gender Identity Not on file Sexual Orientation Not on file Obstetrics History Last Filed Vital Signs Vital Sign Reading Time Taken Comments Blood Pressure 125/77 06/09/2022 9:35 AM EST Pulse 85 06/09/2022 9:35 AM EST Temperature - - Respiratory Rate - - Oxygen Saturation - - Inhaled Oxygen Concentration - - Weight 88 kg (194 lb) 06/09/2022 9:35 AM EST Height - - Body Mass Index - - Plan of Treatment Health Maintenance Due Date Last Done Comments Gonorrhea/Chlamydia Screening 2001 HPV Vaccines (1 - 3-dose series) 2016 Meningococcal B Vaccine (1 o f 2 - Standard) 2017 DTaP,Tdap,and Td Vaccines (1 - Tdap) 2020 Hepatitis B Vaccines (1 of 3 - 19+ 3-dose series) 2020 Pneumococcal Vaccine: Pediat rics (0 to 5 Years) and At-Risk Patients (6 to 49 Years) (1 of 2 - PCV) 2020 Cervical Cancer Screening: P ap Smear 2022 HIV Screening 06/26/2022 Hepatitis C Screening 06/26/2022 Social Influencers of Health Screening 06/26/2022 Depression Screening 07/24/2024 COVID-19 Vaccine (1 - 2023-2 5 season) 2025 Influenza Vaccine (#1) 2025 RSV Immunization Adult Patie nts (1 - 1-dose 75+ series) 2076 HIB Vaccines Aged Out No longer eligi ble based on patient's age to complete this topic Hepatitis A Vaccines Aged Out No long er eligible based on patient's age to complete this topic IPV Vaccines Aged Out No longer eligi ble based on patient's age to complete this topic MMR Vaccines Aged Out No longer eligi ble based on patient's age to complete this topic Meningococcal ACWY Vaccine Aged Out N o longer eligible based on patient's age to complete this topic RSV Immunization Patients Un tatianna 20 months Aged Out No longer eligible b ased on patient's age to complete this topic Varicella Vaccines Aged Out No longer eligible based on patient's age to complete this topic Care Teams Black Pickler Relationship Specialty Start Date End Date Thu Stanley MD PCP - General Internal Medicine 05/12/22
--- OUTSIDE RECORDS SUMMARY | 2025-04-25 12:13 | XMS_ITS | Encounter Summary ---
Author Organization [facility] Address [address] [place] [address] Phone Care Team Providers Care Registered Respiratory Technician Name Role Phone Dayna Daniels MD Primary Care Prov ider Reason for Visit * Reason Comments Med Refill Encounter Details Date Type Department Care Team (Late st Contact Info) Description 09/12/2019 Refill [facility] [address] [place] [phone] An Srinivasan NP Mild intermittent asthma with acute exacerbation Social History Tobacco Use Types Packs/Day Years Used Date Smoking Tobacco: Never Smokeless Tobacco: Never Comments:Never Alcohol Use Standard Drinks/Week Comments No 0 (1 standard drink = 0.6 oz pur e alcohol) Hunger/Food Answer Date Recorded No 05/06/2019 Stable Housing Answer Date Recorded No 07/25/2019 Transportation Concerns Answer Date Rec orded No 05/06/2019 Hazards in Home Answer Date Recorded No 05/06/2019 Financing Utilities Answer Date Recorde d No 05/06/2019 Safety at Home Answer Date Recorded No 05/06/2019 Outside Support Answer Date Recorded No 05/06/2019 Understanding Health Concerns Answer Da te Recorded No 05/06/2019 Financing Health Concerns Answer Date R ecorded No 05/06/2019 Missing School or Work Answer Date Derrick rded No 05/06/2019 Comments No Sex and Gender Information Value Date Recorded Sex Assigned at Female 02/21/2020 10:53 AM EDT Legal Sex Female 12:17 PM EST Gender Identity Female 02/21/2020 10:53 AM EDT Sexual Orientation Bisexual 02/21/2020 10 :53 AM EDT documented as of this encounter Plan of Treatment Not on file documented as of this encounter Visit Diagnoses Diagnosis Mild intermittent asthma with acute exacerbation documented in this encounter Care Teams Registered Respiratory Technician Relationship Specialty Start Date End Date Dayna Daniels MD [address] [place] [address] PCP - General 02/17/17 documented as of this encounter
--- OUTSIDE RECORDS SUMMARY | 2025-04-25 12:13 | XMS_ITS | Encounter Summary ---
Author Organization [facility] Address [address] [place] [phone] Phone Care Team Providers Care Valve Grinder Name Role Phone Dayna Daniels MD Primary Care Prov ider Reason for Visit * Reason Onset Date Comments brief encounter 03/05/2018 Encounter Details Date Type Department Care Team (Late st Contact Info) Description 03/05/2018 Documentation [facility] [address] [address] Kim Shin LICSW brief encounter Social History Tobacco Use Types Packs/Day Years Used Date Smoking Tobacco: Never Comments:Never Alcohol Use Standard Drinks/Week [...] on filedocumented in this encounter Care Teams Valve Grinder Relationship Specialty Start Date End Date Dayna Daniels MD [address] [address] PCP - General 02/17/17 documented as of this encounter
== END 2025-04-25 12:17 | disposition home or self-care (01) ==
PROVIDERS: PCP Internal Medicine; Visit Provider Internal Medicine
DX: Z00.00 Encounter for general adult medical examination without abnormal findings (principal); E78.5 Hyperlipidemia, unspecified

== ENCOUNTER → 2025-04-25 10:54 | Outpatient (BNVA) | payer SELFPAY | PROVIDERS: PCP Internal Medicine; Visit Provider Internal Medicine | DX: Z00.00 Encounter for general adult medical examination without abnormal findings (principal); E78.5 Hyperlipidemia, unspecified | CPT/HCPCS: 96127 ==

== ENCOUNTER 2025-04-29 10:33 | Outpatient (REF) | payer OTHER, SELFPAY ==
--- OUTSIDE RECORDS SUMMARY | 2025-04-29 12:49 | XMS_ITS | Encounter Summary ---
Author Organization [facility] Address [address] [place] [address] Phone Care Team Providers Care Script Coordinator Name Role Phone Dayna Daniels MD Primary Care Prov ider Reason for Visit * Reason Comments Med Refill Encounter Details Date Type Department Care Team (Late st Contact Info) Description 09/12/2019 Refill [facility] [address] [place] [phone] An Srinivasan NP Mild intermittent asthma with [...] exacerbation documented in this encounter Care Teams Script Coordinator Relationship Specialty Start Date End Date Dayna Daniels MD [address] [place] [address] PCP - General 02/17/17 documented as of this encounter
--- OUTSIDE RECORDS SUMMARY | 2025-04-29 12:50 | XMS_ITS | Encounter Summary ---
Author Organization [facility] Address [address] [place] [phone] Phone Care Team Providers Care Flanging Operator Name Role Phone Dayna Daniels MD Primary Care Prov ider Reason for Visit * Reason Onset Date Comments brief encounter 03/05/2018 Encounter Details Date Type Department Care Team (Late st Contact Info) Description 03/05/2018 Documentation [facility] [address] [address] Kim Shin LICSW brief encounter Social History [...] on filedocumented in this encounter Care Teams Flanging Operator Relationship Specialty Start Date End Date Dayna Daniels MD [address] [address] PCP - General 02/17/17 documented as of this encounter
--- OUTSIDE RECORDS SUMMARY | 2025-04-29 12:50 | XMS_ITS | Clinical Summary ---
Author Organization [facility] Address [address] [place] [address] Care Team Providers Care Agriculture Consultant Name Role Phone Thu Stanley MD Primary Care Provider [phone] Surgical History Surgery Date Site/Laterality Comments OTHER [...] age to complete this topic Care Teams Agriculture Consultant Relationship Specialty Start Date End Date Thu Stanley MD PCP - General Internal Medicine 05/12/22
--- OUTSIDE RECORDS SUMMARY | 2025-04-29 12:50 | XMS_ITS | Clinical Summary ---
Author Organization [facility] Address [address] [place] [address] Phone Care Team Providers Care Vertical Borer Name Role Phone Dayna Daniels MD Primary Care Prov ider Allergies [...] complete this topic Procedures * Due to [facility] law, this organization might not be sharing sensitive test results. Procedure Name Priority Date/Time Associated Diagnosis Comments CHLAMYDIA TRACHOMATIS, AMPLIFIED Routine 02/21/2020 4:08 PM EDT Encounter for screening examination for sexually transmitted disease from Last 3 Months or Most Recently Relevant to Health Maintenance Results * Due to [facility] law, this organization might not be sharing sensitive test results. * Chlamydia trachomatis, Amplified (02/21/2020 4:08 PM EDT) CHLAMYDIA, DNA PROBE NEGATIVE NEGATIVE [facility] Urine (Urine) 02/21/2020 4:0 8 PM EDT 02/21/2020 8:39 PM EDT Narrative [facility] - 03/02/2020 9:58 AM EDT [employer], a member of [address] [address] Roving Tester Laboratory - Brunilda Martin MD An Srinivasan NP LAB MICROBIOLOGY - GENERAL ORDER LIZZETH Final Result [facility] from Last 3 Months or Most Recently Relevant to Health Maintenance Insurance [facility]CIAL [facility] Address: [address] [place] [phone] Care Teams Vertical Borer Relationship Specialty Start Date End Date Dayna Daniels MD [address] [place] [phone] PCP - General 02/17/17
--- OUTSIDE RECORDS SUMMARY | 2025-04-29 12:50 | XMS_ITS | Encounter Summary ---
Author Organization [facility] Address [address] [place] [phone] Phone Care Team Providers Care Vegetable Worker Name Role Phone Dayna Daniels MD Primary Care Prov ider Encounter Details Date Type Department Care Team (Late st Contact Info) Description 09/21/2017 Conversion Encounter [facility] [address] [phone] Dayna Richter MD [address] [address] Social History Tobacco Use Types Packs/Day Years [...] on filedocumented in this encounter Care Teams Vegetable Worker Relationship Specialty Start Date End Date Dayna Daniels MD [address] [address] PCP - General 02/17/17 documented as of this encounter
[2025-04-29 13:28] LABS: MANUAL DIFF FLAG NO
[2025-04-29 13:32] LABS: Hematocrit 36.0 % (37.0-47.0); Hemoglobin 12.1 g/dl (12.0-16.0); Imm Gran Abs Auto 0.02 X10*3/uL (0.00-0.03); Imm Gran Pct Auto 0.4 % (0.0-0.4); Lymphocytes Absolute Auto 1.4 X10*3/uL (1.2-4.9); Mean Corpuscular HGB Conc 33.6 g/dl (31.0-35.0); Mean Corpuscular Hemoglobin 27.5 pg (27.0-33.0); Mean Corpuscular Volume 81.8 fL (80.0-98.0); NRBC Abs Auto 0.000 X10*3/uL (0.0-0.012); NRBC Pct Auto 0.0 /100WBC (0.0-0.2); Platelet Count 342 X10*3/uL (160-400); Red Blood Count 4.40 X10*6/uL (4.20-5.50); White Blood Count 4.7 X10*3/uL (4.8-10.8)
[2025-04-29 14:00] LABS: Alanine Aminotransferase 26 U/L (0-31); Albumin Level 4.4 g/dL (3.5-5.0); Alkaline Phosphatase 51 U/L (39-117); Anion Gap 12 (12-20); Aspartate Amino Transferase 17 U/L (5-31); Blood Urea Nitrogen 7 mg/dL (9-16); Calcium 9.2 mg/dL (8.4-10.2); Carbon Dioxide 23 mmol/L (22-29); Chloride 108 mmol/L (96-108); Cholesterol 236 mg/dL (<200); Estimated Glomerular Filt Rate > 60; HDL Cholesterol 57 mg/dL (>40); Potassium 3.9 mmol/L (3.3-5.1); Sodium 139 mmol/L (135-145); Total Protein 7.1 g/dL (6.5-8.0); Triglycerides 121 mg/dL (<150)
== END 2025-04-29 10:34 | disposition home or self-care (01) ==
LOC: HO.HMGCLDS 10:33
PROVIDERS: PCP Internal Medicine; Visit Provider Internal Medicine
DX: Z00.00 Encounter for general adult medical examination without abnormal findings (principal); E78.5 Hyperlipidemia, unspecified
CPT/HCPCS: 36415; 80053; 80061; 84443; 85025

== ENCOUNTER 2025-04-30 06:45 | Outpatient (REF) | payer OTHER, SELFPAY ==
[2025-04-30 10:59] LABS: Appearance Urine Clear; Glucose Urine UA Negative (Negative); PH 6.0 (5.0-9.0); Specific Gravity - Urine 1.010 (1.005-1.025)
== END 2025-04-30 06:46 | disposition home or self-care (01) ==
LOC: HO.HMGCLNP 06:45
PROVIDERS: PCP Internal Medicine; Visit Provider Internal Medicine
DX: Z00.00 Encounter for general adult medical examination without abnormal findings (principal); E78.5 Hyperlipidemia, unspecified
CPT/HCPCS: 81001